=== PATIENT | female | born 1970 | race Caucasian/White ===

== ENCOUNTER 2018-10-19 12:06 | Emergency (ER) | payer OTHER ==
[~2018-10-19] VITALS: Ht 167.6 cm; Wt 66.5 kg
[2018-10-19 12:12] VITALS: Ht 167.6 cm; Wt 66.5 kg
[2018-10-19] MEDS ORDERED: KETOROLAC 15 MG INJ IV STA (15:42)
[2018-10-19] MEDS ORDERED: SOD CHLORIDE 0.9% 1,000 ML IV STA (15:42)
[2018-10-19] MEDS ORDERED: SERT-165 PO (16:23)
[2018-10-19] MEDS ORDERED: BUSP15TA3 PO (16:25)
[2018-10-19] MEDS ORDERED: LUN2 PO (16:25)
--- NOTE | 2018-10-19 17:13 | ERD ---
ER Documentation Chief Complaint Chief Complaint RUQ abd pain since yesterday; denies n/v/diarrhea "claims lacerated liver" HPI This is a 48-year-old female who presents to the emergency room with right upper quadrant abdominal pain. The patient describes at least 4-5 days of pain to the ribs on the right upper quadrant. She states that "I feel like my liver split apart and then went back together ". When asked to define as the patient is describing some sharp right-sided pain that is somewhat pleuritic but worse to touch on the musculature and wall of the thorax. She denies any shortness of breath, no recent travel, immobilization, surgery, family history of DVT or calf swelling. The patient is a non-smoker. She denies any fevers chills or cough. Patient denies any recent falls injuries or trauma. ROS All systems reviewed and are negative except as per history of present illness. Medications Home Meds Active Scripts Ibuprofen* (Motrin*) 800 Mg Tab, 800 MG PO Q6H PRN for PAIN AND OR ELEVATED TEMP, #30 TAB Prov:HILTON BELL MD 10/19/18 Reported Medications Eszopiclone (Lunesta) 2 Mg Tab, 2 MG PO HS PRN for INSOMNIA, TAB 10/19/18 Buspirone Hcl* (Buspirone Hcl*) 15 Mg Tablet, 22.5 MG PO DAILY, TAB 10/19/18 Sertraline Hcl* (Sertraline Hcl*) 100 Mg Tablet, 100 MG PO DAILY, #30 TAB 10/19/18 Allergies Allergies: Coded Allergies: No Known Allergy (Unverified , 10/19/18) PMhx/Soc History of Surgery: Yes (ovaryan cyst) Anesthesia Reaction: No Hx Neurological Disorder: No Hx Respiratory Disorders: No Hx Cardiac Disorders: No Hx Psychiatric Problems: No Hx Miscellaneous Medical Probl: Yes (insomnia,depression) Hx Alcohol Use: No Hx Substance Use: No Smoking Status: Never smoker FmHx Family History: No diabetes Physical Exam Vitals Vital Signs Date Temp Pulse Resp B/P (MAP) Pulse Ox O2 O2 Flow FiO2 Time Delivery Rate 10/19/18 61 18 108/71 100 Room Air 16:48 (83) 10/19/18 97.8 91 20 118/70 97 12:12 (86) Physical Exam General: Well developed, well nourished, no acute distress Head: Normocephalic, atraumatic. Eyes: Pupils equally reactive, EOM intact ENT: Moist mucous membranes Neck: Supple, no lymphadenopathy Respiratory: Lungs clear bilaterally, no distress Cardiovascular: RRR, no murmurs, rubs, or gallops Abdominal: Soft, non-tender, non-distended, no peritoneal signs, no tenderness to the right upper quadrant of the abdomen, negative Cline sign, no pulsatile mass, no tenderness to McBurney's point, slight tenderness along the ribs of the right thorax but no deformities or step-offs, no bruising to the abdominal or thoracic wall : Deferred MSK: No edema, no unilateral swelling, 5/5 strength Neurologic: Alert and oriented, moving all extremities, normal speech, no focal weakness, no cerebellar signs Skin: No rash Psych: Normal mood Result Diagram: 10/19/18 1637 10/19/18 1637 Results 24 hrs Laboratory Tests Test 10/19/18 16:33 10/19/18 16:37 10/19/18 16:44 Urine Color YELLOW Urine Clarity CLEAR Urine pH 5.0 Urine Specific [place] 1.013 Urine Ketones NEGATIVE mg/dL Urine Nitrite NEGATIVE mg/dL Urine Bilirubin NEGATIVE mg/dL Urine Urobilinogen NEGATIVE mg/dL Urine Leukocyte Esterase NEGATIVE [place]/ul Urine Microscopic RBC 1 /HPF Urine Microscopic WBC 1 /HPF Urine Hemoglobin 1+ mg/dL Urine Glucose NEGATIVE mg/dL Urine Total Protein NEGATIVE mg/dl White Blood Count 8.3 10^3/ul Red Blood Count 4.39 10^6/ul Hemoglobin 13.0 g/dl Hematocrit 40.6 % Mean Corpuscular Volume 92.5 fl Mean Corpuscular Hemoglobin 29.6 pg Mean Corpuscular 32.0 g/dl Hemoglobin Concent Red Cell Distribution Width 12.4 % Platelet Count 321 10^3/UL Mean Platelet Volume 9.3 fl Immature Granulocytes % 0.100 % Neutrophils % 48.1 % Lymphocytes % 41.5 % Monocytes % 7.7 % Eosinophils % 2.2 % Basophils % 0.4 % Nucleated Red Blood Cells % 0.0 /100WBC Immature Granulocytes # 0.010 10^3/ul Neutrophils # 4.0 10^3/ul Lymphocytes # 3.5 10^3/ul Monocytes # 0.6 10^3/ul Eosinophils # 0.2 10^3/ul Basophils # 0.0 10^3/ul Nucleated Red Blood Cells # 0.0 10^3/ul Sodium Level 143 mmol/L Potassium Level 4.0 mmol/L Chloride Level 105 mmol/L Carbon Dioxide Level 29 mmol/L Anion Gap 9 Blood Urea Nitrogen 16 mg/dl Creatinine 0.72 mg/dl Est Glomerular Filtrat > 60 mL/min Rate mL/min Glucose Level 96 mg/dl Calcium Level 10.3 mg/dl Total Bilirubin 0.2 mg/dl Direct Bilirubin 0.00 mg/dl Indirect Bilirubin 0.2 mg/dl Aspartate Amino 22 IU/L Transf (AST/SGOT) Alanine 23 IU/L Aminotransferase (ALT/SGPT) Alkaline Phosphatase 76 IU/L Total Protein 8.4 g/dl Albumin 4.6 g/dl Globulin 3.80 g/dl Albumin/Globulin Ratio 1.21 Lipase 120 U/L POC Beta HCG, Qualitative NEGATIVE Current Medications Medications Dose Sig/Francesca Start Time Status Last (Trade) Ordered Route PRN Stop Time Admin Dose Reason Admin Sodium 1,000 ml @ Q1H STAT 10/19/18 DC 10/19/18 Chloride 1,000 mls/hr IV 15:42 16:43 10/19/18 16:41 Ketorolac 15 mg ONCE STAT 10/19/18 DC 10/19/18 Tromethamine IV 15:42 16:43 (Toradol) 10/19/18 15:44 Procedures/MDM EKG, MONITORS, & DIAGNOSTIC IMAGING: Gallbladder ultrasound: Fatty liver Chest x-ray: Chest x-ray: I reviewed and interpreted a 1 view of the chest Mediastinum: No enlargement Cardiac silhouette: No cardiomegaly Airspace: Clear lung warren bilaterally without evidence of pneumothorax Bones: No evidence of fracture LAB INTERPRETATION: I reviewed the laboratory testing and it shows no evidence of acute process MEDICAL DECISION MAKING: The patient is describing that her liver split apart and then went back together. The patient has no evidence of trauma no recent injury. Patient has a benign abdominal exam. She only has mild tenderness along the lower ribs but no evidence of fall injury or trauma. The patient meets the PERC RULE out criteria. Thus, less than 2% risk of pulmonary embolism with better alternative diagnosis. No indication for d-dimer or CT pulmonary angiogram at this time. Unclear etiology of the patient's symptoms. She has no risk factors for traumatic injury of the liver. She has a benign abdominal exam and stable vital signs I do not believe CT imaging of the abdomen pelvis is necessary at this time. The patient may have some element of pleurisy but no risk factors for PE as described above. Symptoms and clinical exam seems to be more likely musculoskeletal than anything else. No signs or symptoms concerning for acute vascular process. Low pretest probability for hepatobiliary obstruction the gallbladder ultrasound would be appropriate. ER COURSE: * Nonsteroidal anti-inflammatory provided. The patient's laboratory testing and diagnostic imaging are unrevealing for the patient's symptomatology. Consider possible pleurisy consider possible muscular skeletal etiology. However, the patient has a repeat abdominal exam and is benign. Laboratory testing and diagnostic imaging that showed no evidence of acute process. Return precautions were discussed and understood and the patient will benefit from a trial of nonsteroidal anti-inflammatory. CONSULTATION: None DISPOSITION PLAN: The patient does not have an identifiable emergent medical condition that warrants inpatient hospitalization at this time. The patient is deemed safe for discharge with outpatient follow-up. We discussed follow up with the patient's primary care doctor within 24 to 48 hours as needed. We also discussed return to the emergency room for worsening symptoms or worsening condition. Outpatient referral: None required Discharge Medications: Motrin Departure Diagnosis: Primary Impression: Right upper quadrant abdominal pain Condition: Stable HILTON BELL MD Oct 19, 2018 17:13
[2018-10-19] MEDS ORDERED: IBUP800T48 PO (17:39)
[2018-10-19 17:57] VITALS: BP 110/68; PULSE 62; RESP 20
== END 2018-10-19 18:00 | disposition home or self-care (01) ==
LOC: E/R 12:06
DX: R10.11 Right upper quadrant pain (principal)
CPT/HCPCS: 36415; 71045; 76705; 80053; 81001; 81025; 83690; 85025; 96374; 99285; J1885; J7030